=== PATIENT | female | born 1970 | race Two or more races ===

== ENCOUNTER 2016-12-26 17:59 | Emergency (ER) | payer OTHER ==
--- NOTE | 2016-12-26 18:49 | ER Document Report ---
ED Medical Screen (RME) - General Chief Complaint: Abdominal Pain Stated Complaint: ABDOMINAL PAIN Time Seen by Provider: 12/26/16 18:44 Mode of Arrival: Ambulatory Information source: Patient TRAVEL OUTSIDE OF THE [place] IN LAST 30 DAYS: No - HPI Onset: Yesterday - 2000 HRS Onset/Duration: Gradual Quality of pain: Dull Severity: Moderate Associated Symptoms: Nausea. denies: Chills, Dysuria, Fever Exacerbated by: Denies Relieved by: Denies Similar symptoms previously: Yes - UNSURE OF CAUSE Recently seen / treated by doctor: No - Related Data Smoking: Non-smoker Frequency of alcohol use: None Drug Abuse: None Allergies/Adverse Reactions: latex Allergy (Verified 12/26/16 18:32) Past Medical History - General Information source: Patient - Social History Cigarette use (# per day): No Chew tobacco use (# tins/day): No Frequency of alcohol use: None Drug Abuse: None Lives with: Spouse/Significant other Family history: None - Past Medical History Cardiac Medical History: Reports: None Pulmonary Medical History: Reports: None Endocrine Medical History: Reports: None Renal/ Medical History: Reports: Other. Denies: Hx Peritoneal Dialysis Other: POSSIBLE ENDOMETRIOSIS, PER [facility]. Malignancy Medical History: Reports: None GI Medical History: Reports: None Musculoskeltal Medical History: Reports None Psychiatric Medical History: Reports: None Past Surgical History: Reports: Hx Section - 2x, Hx Tubal Ligation Review of Systems - Review of Systems Constitutional: No symptoms reported EENT: No symptoms reported Cardiovascular: No symptoms reported Respiratory: No symptoms reported Gastrointestinal: See HPI Genitourinary: No symptoms reported Female Genitourinary: See HPI. denies: Vaginal bleeding Musculoskeletal: No symptoms reported Skin: No symptoms reported Neurological/Psychological: No symptoms reported Physical Exam - Vital signs Vitals: Temp Pulse Resp BP Pulse Ox 98.3 F 110 H 14 128/96 H 100 12/26/16 17:59 12/26/16 17:59 12/26/16 17:59 12/26/16 17:59 12/26/16 17:59 Interpretation: Hypertensive, Tachycardic. No: Tachypneic, Febrile - General General appearance: Alert. No: Appears well - APPEARS UNCOMFORTABLE In distress: None - HEENT Head: Normocephalic Eyes: Normal Ears: Normal Nasal: Normal Mouth/Lips: Normal Mucous membranes: Normal - Respiratory Respiratory status: No respiratory distress - Cardiovascular Rhythm: Regular - Abdominal Inspection: Obese - Back Back: Normal - Extremities General upper extremity: Normal inspection General lower extremity: Normal inspection - Neurological Neuro grossly intact: Yes Cognition: Normal Orientation: AAOx4 - Psychological Associated symptoms: Normal affect, Normal mood - Skin Skin Temperature: Warm Skin Moisture: Dry Skin Color: Normal Skin Turgor: Elastic Course - Vital Signs Vital signs: Temp Pulse Resp BP Pulse Ox 98.3 F 110 H 14 128/96 H 100 12/26/16 17:59 12/26/16 17:59 12/26/16 17:59 12/26/16 17:59 12/26/16 17:59
[2016-12-26] MEDS ORDERED: ONDANSETRON HCL INJ/PF 4 MG/2 ML SDV IV ONE (18:50)
[2016-12-26] MEDS ORDERED: HYDROMORPHONE HCL INJ/PF 2 MG/ML AMPULE IV ONE (18:50)
[2016-12-26 19:14] LABS: APPEARANCE,URINE SLIGHTLY-CLOUDY; BILIRUBIN,URINE NEGATIVE (NEGATIVE); GLUCOSE, URINE NEGATIVE (NEGATIVE); KETONES,URINE NEGATIVE (NEGATIVE); LEUKOCYTE ESTERASE,URINE NEGATIVE (NEGATIVE); NITRITE,URINE NEGATIVE (NEGATIVE); PROTEIN,URINE NEGATIVE (NEGATIVE); URINE SPECIFIC GRAVITY 1.027; UROBILINOGEN,URINE NEGATIVE mg/dL (<2.0)
[2016-12-26 19:57] LABS: ABSOLUTE LYMPHOCYTES (AUTO) 0.9 10^3/uL (0.5-4.7); ABSOLUTE MONOCYTES (AUTO) 0.5 10^3/uL (0.1-1.4); ABSOLUTE NEUT (AUTO) 10.1 10^3/uL (1.7-8.2); BASOPHILS % (AUTO) 0.2 % (0-2); EOSINOPHILS % (AUTO) 0.3 % (0-6); HEMATOCRIT 37.4 % (36.0-47.0); HGB HCT DIFFERENCE -1.4; LYMPHOCYTES % (AUTO) 8.2 % (13-45); MEAN CORPUSCULAR HEMOGLOBIN 25.5 pg (27.0-33.4); MEAN CORPUSCULAR HGB CONC 31.9 g/dL (32.0-36.0); MEAN CORPUSCULAR VOLUME 80 fl (80-97); MONOCYTES % (AUTO) 3.9 % (3-13); RED BLOOD COUNT 4.68 10^6/uL (3.72-5.28); RED CELL DISTRIBUTION WIDTH 15.1 % (11.5-14.0); SEGMENTED NEUTROPHILS % (AUTO) 87.4 % (42-78); WHITE BLOOD COUNT 11.6 10^3/uL (4.0-10.5)
--- NOTE | 2016-12-26 20:04 | RADIOLOGY REPORT (SQ) ---
EXAM DESCRIPTION: U/S NON-OB PELVIS TV W/O DOP COMPLETED DATE/TIME: 12/26/2016 7:54 pm REASON FOR STUDY: PELVIC PAIN COMPARISON: None. TECHNIQUE: Dynamic and static grayscale images acquired of the pelvis via transvaginal approach and recorded on PACS. Additional selected color Doppler and spectral images recorded. LIMITATIONS: Large patient, adnexal bowel gas. FINDINGS: UTERUS: Contour normal. No mass. Uterus is 9.5 x 4.7 x 5.5 cm in size. ENDOMETRIAL STRIPE: No focal or generalized thickening. No masses. Endometrium 14 mm in thickness. CERVIX: No nabothian cysts. RIGHT OVARY: Not visualized due to bowel gas. RIGHT OVARY DOPPLER: Not performed LEFT OVARY: Not visualized due to bowel gas LEFT OVARY DOPPLER: Not performed FREE FLUID: None noted. OTHER: No other significant finding. IMPRESSION: Uterus unremarkable. Ovaries not visualized due to adnexal bowel gas. TECHNICAL DOCUMENTATION: JOB ID: [id number] [employer]- All Rights Reserved
[2016-12-26] MEDS ORDERED: NORMAL SALINE 1000 ML 1,000 ML IV ONE (21:02)
[2016-12-26] MEDS ORDERED: KETOROLAC TROMETHAMINE INJ/PF 30 MG/1 ML SDV IV ONE (21:02)
--- NOTE | 2016-12-26 21:04 | ER Document Report ---
ED General - General Chief Complaint: Abdominal Pain Stated Complaint: ABDOMINAL PAIN Time Seen by Provider: 12/26/16 18:44 Mode of Arrival: Ambulatory Notes: Patient is a 46-year-old female without past medical history, prior surgical history of a section and tubal ligation who presents with 36 hours of diffuse lower abdominal cramping with associated diarrhea and vomiting. Her and [id number] who ate the same pizza from [employer] had the exact same symptoms. Patient reports that the abdominal pain is an intermittent , lower abdominal cramping but became worse, prompting her to come to the emergency department. Nothing improves or worsens her symptoms. She did have one episode of emesis here in the emergency department that was nonbilious. She states that this has mostly resolved her pain. Denies a history of similar symptoms in the past. She has not seen a primary care doctor regarding today's concerns. She denies any fever, vaginal bleeding, vaginal discharge, flank pain , chest pain or shortness of breath. TRAVEL OUTSIDE OF THE [place] IN LAST 30 DAYS: No - Related Data Allergies/Adverse Reactions: latex Allergy (Verified 12/26/16 18:32) Past Medical History - General Information source: Patient - Social History Smoking Status: Never Smoker Cigarette use (# per day): No Chew tobacco use (# tins/day): No Frequency of alcohol use: None Drug Abuse: None Lives with: Spouse/Significant other Family History: Reviewed & Not Pertinent - Past Medical History Cardiac Medical History: Reports: None Pulmonary Medical History: Reports: None Endocrine Medical History: Reports: None Renal/ Medical History: Reports: Other. Denies: Hx Peritoneal Dialysis Malignancy Medical History: Reports: None GI Medical History: Reports: None Musculoskeltal Medical History: Reports None Psychiatric Medical History: Reports: None Past Surgical History: Reports: Hx Section - 2x, Hx Tubal Ligation Review of Systems - Review of Systems Notes: Constitutional: Negative for fever. HENT: Negative for sore throat. Eyes: Negative for visual changes. Cardiovascular: Negative for chest pain. Respiratory: Negative for shortness of breath. Gastrointestinal: Positive negative for abdominal pain, vomiting and diarrhea. Genitourinary: Negative for dysuria. Musculoskeletal: Negative for back pain. Skin: Negative for rash. Neurological: Negative for headaches, weakness or numbness. 10 point ROS negative except as marked above and in HPI. Physical Exam - Vital signs Vitals: Temp Pulse Resp BP Pulse Ox 98.3 F 110 H 14 128/96 H 100 12/26/16 17:59 12/26/16 17:59 12/26/16 17:59 12/26/16 17:59 12/26/16 17:59 Interpretation: Tachycardic Notes: PHYSICAL EXAMINATION: GENERAL: Well-appearing, well-nourished and in no acute distress. HEAD: Atraumatic, normocephalic. EYES: Pupils equal round and reactive to light, extraocular movements intact, sclera anicteric, conjunctiva are normal. ENT: nares patent, oropharynx clear without exudates. Moderately dry mucous membranes. NECK: Normal range of motion, supple without lymphadenopathy LUNGS: Breath sounds clear to auscultation bilaterally and equal. No wheezes rales or rhonchi. HEART: Regular rate and rhythm without murmurs ABDOMEN: Soft, diffuse mild lower abdominal tenderness without any focal rebound or guarding. No upper abdominal tenderness, specifically no tenderness to the right upper quadrant or epigastrium.Normoactive bowel sounds. No masses appreciated. EXTREMITIES: Normal range of motion, no pitting or edema. No cyanosis. NEUROLOGICAL: No focal neurological deficits. Moves all extremities spontaneously and on command. PSYCH: Normal mood, normal affect. SKIN: Warm, Dry, normal turgor, no rashes or lesions noted. Course - Re-evaluation Re-evalutation: 12/26/16 21:02 Presentation of an overall well-appearing patient in no acute distress with complaints of nausea, vomiting, diarrhea. Multiple family members with exact same symptoms after eating pizza [employer]. Patient does have some mild diffuse tenderness over the lower abdomen without any focal rebound or guarding. Overall well hydrated on exam. Able to tolerate oral intake here in the emergency department. Low clinical suspicion for any acute life- threatening etiology based on exam and history including acute cholecystitis, SBO, appendicitis, nephrolithiasis, or pylonephritis. CMP without evidence of acute hepatitis or significant dehydration. At this time will discharge with return precautions and follow-up recommendations. Verbal discharge instructions given a the bedside and opportunity for questions given. Medication warnings reviewed. Patient is in agreement with this plan and has verbalized understanding of return precautions and the need for primary care follow-up in the next 24-72 hours. - Vital Signs Vital signs: Temp Pulse Resp BP Pulse Ox 99.8 F 101 H 19 130/71 H 97 12/26/16 22:20 12/26/16 22:20 12/26/16 22:20 12/26/16 22:20 12/26/16 22:20 - Laboratory Result Diagrams: 12/26/16 19:34 12/26/16 21:20 Laboratory results interpreted by me: 12/26/16 12/26/16 19:34 21:20 WBC 11.6 H MCH 25.5 L MCHC 31.9 L RDW 15.1 H Seg Neutrophils % 87.4 H Lymphocytes % 8.2 L Absolute Neutrophils 10.1 H Sodium 136.8 L Glucose 125 H - Diagnostic Test Radiology reviewed: Reports reviewed Discharge - Discharge Clinical Impression: Vomiting and diarrhea Abdominal pain Qualifiers: Abdominal location: lower abdomen, unspecified Qualified Code(s): R10.30 - Lower abdominal pain, unspecified Condition: Good Disposition: HOME, SELF-CARE Additional Instructions: Your symptoms are likely due to food contamination and should resolve in the next several days. You can take [id number] loperamide also known as Imodium as needed for diarrhea per box instructions. Continue to stay hydrated with plenty of solution such as Gatorade or Pedialyte. You are being prescribed Zofran to take as needed for nausea and vomiting. Please return if you develop severe abdominal pain, pass out, become unable to tolerate any oral fluids for 12 more hours, or any other symptoms that are concerning to you. Referrals: FAY TUCKER MD [Primary Care Provider] - Follow up as needed
[2016-12-26] MEDS ORDERED: ONDANSETRON ODT 4 MG TAB (6 TAB/DSPK) PO PRN (21:35)
[2016-12-26 21:44] LABS: ALANINE AMINOTRANSFERASE 30 U/L (9-52); ALKALINE PHOSPHATASE 101 U/L (38-126); ANION GAP 10 (5-19); ASPARTATE AMINO TRANSFERASE 17 U/L (14-36); BILIRUBIN,DIRECT 0.3 mg/dL (0.0-0.4); BILIRUBIN,TOTAL 0.8 mg/dL (0.2-1.3); BLOOD UREA NITROGEN 7 mg/dL (7-20); CALCIUM 9.5 mg/dL (8.4-10.2); CARBON DIOXIDE 24 mmol/L (22-30); CHLORIDE 103 mmol/L (98-107); CREATININE RESULT 0.61 mg/dL (0.52-1.25); GLUCOSE 125 mg/dL (75-110); POTASSIUM 3.8 mmol/L (3.6-5.0); SODIUM 136.8 mmol/L (137-145); TOTAL PROTEIN 7.1 g/dL (6.3-8.2)
[2016-12-26 22:36] VITALS: BP 130/71
== END 2016-12-26 22:20 | disposition home or self-care (01) ==
LOC: ER 17:59
DX: R11.2 Nausea with vomiting, unspecified (principal); R19.7 Diarrhea, unspecified; R10.30 Lower abdominal pain, unspecified
CPT/HCPCS: 99284; 96361; 96374; 96375; 36415; 84703; 85025; 80053; 81001; 76830; J1885; J2405; J7030

== ENCOUNTER 2016-12-28 19:07 | Observation (INO) | payer OTHER ==
[~2016-12-28 19:07] MED LIST: DEXAMETHASONE SOD PHOSPHATE INJ 4 MG/1 ML VIAL ONE; GLYCOPYRROLATE INJ 0.4 MG/2 ML VIAL ONE; LIDOCAINE 2% INJ-PF (20 MG/ML) 10 ML AMPUL ONE; NEOSTIGMINE METHYLSULFATE 10 MG/10 ML VIAL ONE; ONDANSETRON HCL INJ/PF 4 MG/2 ML SDV ONE; SUCCINYLCHOLINE CHLORIDE INJ 200 MG/10 ML VIAL ONE; VECURONIUM BROMIDE INJ 10 MG VIAL IV ONE
[2016-12-28] MEDS ORDERED: PIPERACILLIN/TAZOBACTAM 3.375 GM VIAL IV ONE (19:12)
[2016-12-28] MEDS ORDERED: MORPHINE SULFATE 10 MG/ML INJ IV PRN ×3 (19:12→22:27)
[2016-12-28] MEDS ORDERED: ONDANSETRON HCL INJ/PF 4 MG/2 ML SDV IV ONE (19:12)
[2016-12-28] MEDS ORDERED: NORMAL SALINE 1000 ML 1,000 ML IV ONE (19:13)
--- NOTE | 2016-12-28 19:46 | ER Document Report ---
ED General - General Stated Complaint: ABDOMINAL PAIN Time Seen by Provider: 12/28/16 19:12 Notes: Patient is a 46-year-old female with a past medical history of hypertension who presents today with a total of 3 days of progressively worsening abdominal pain with associated diarrhea and vomiting. I saw this patient 2 days ago at which time she had generalized abdominal pain, diarrhea and vomiting without any fever or constitutional symptoms. She was discharged with concern for possible foodborne illness given multiple for members of the same symptoms. Patient states that she continued to not feel any better and had progressively worsening lower abdominal pain and did spike a fever today. This prompted her to follow-up with her primary care doctor who performed a CT scan of her abdomen pelvis was demonstrate an acute appendicitis. At time of presentation she notes a mild, dull, constant, aching pain mostly located to the right lower quadrant. She states that she has been having diarrhea and nausea but no further episodes of vomiting. No history of similar symptoms in the past. TRAVEL OUTSIDE OF THE [place] IN LAST 30 DAYS: No - Related Data Allergies/Adverse Reactions: latex Allergy (Verified 12/26/16 18:32) Home Medications: Current Home Medications Fluticasone Propionate [Flonase Nasal [place] 50 Mcg/[place] 16 gm] 1 spray NASL Q12 12/28/16 [History] Loratadine [Claritin] 10 mg PO PRN PRN 12/28/16 [History] Montelukast Sodium [Singulair 10 mg Tablet] 10 mg PO QHS 12/28/16 [History] Past Medical History - General Information source: Patient - Social History Smoking Status: Never Smoker Frequency of alcohol use: None Drug Abuse: None Lives with: Spouse/Significant other Family History: Reviewed & Not Pertinent Renal/ Medical History: Denies: Hx Peritoneal Dialysis Past Surgical History: Reports: Hx Section - 2x, Hx Tubal Ligation Review of Systems - Review of Systems Notes: Constitutional: Negative for fever. HENT: Negative for sore throat. Eyes: Negative for visual changes. Cardiovascular: Negative for chest pain. Respiratory: Negative for shortness of breath. Gastrointestinal: Positive for abdominal pain and diarrhea Genitourinary: Negative for dysuria. Musculoskeletal: Negative for back pain. Skin: Negative for rash. Neurological: Negative for headaches, weakness or numbness. 10 point ROS negative except as marked above and in HPI. Physical Exam - Vital signs Vitals: BP 137/80 H 12/28/16 19:40 Interpretation: Normal Notes: PHYSICAL EXAMINATION: GENERAL: Well-appearing, well-nourished and in no acute distress. HEAD: Atraumatic, normocephalic. EYES: Pupils equal round and reactive to light, extraocular movements intact, sclera anicteric, conjunctiva are normal. ENT: nares patent, oropharynx clear without exudates. Moist mucous membranes. NECK: Normal range of motion, supple without lymphadenopathy LUNGS: Breath sounds clear to auscultation bilaterally and equal. No wheezes rales or rhonchi. HEART: Regular rate and rhythm without murmurs ABDOMEN: Soft, focal tenderness to the right lower quadrant without rebound or guarding EXTREMITIES: Normal range of motion, no pitting or edema. No cyanosis. NEUROLOGICAL: No focal neurological deficits. Moves all extremities spontaneously and on command. PSYCH: Normal mood, normal affect. SKIN: Warm, Dry, normal turgor, no rashes or lesions noted. Course - Re-evaluation Re-evalutation: 12/28/16 19:45 Patient presents with now constant right lower quadrant abdominal pain with associated diarrhea and nausea. She did spike a fever today which is what prompted her to go to her primary care doctor's office. States that she did so based on return precautions provided by me on the prior visit. A CT scan was obtained by Dr. Juárez and does show an acute appendicitis. On examination today , patient's exam is much more consistent with an acute appendicitis with focal right lower quadrant tenderness but she remains without any rebound or guarding. She continues to not have a leukocytosis. She does appear somewhat dehydrated. Vitals are otherwise within normal limits. I have consulted with Dr. Shrestha will take the patient to the operating room for an appendectomy. IV fluids and antibiotics have been started. - Vital Signs Vital signs: Temp Pulse Resp BP Pulse Ox 98.7 F 17 130/70 H 99 12/28/16 20:11 12/28/16 20:01 12/28/16 20:01 12/28/16 20:01 - Diagnostic Test Radiology reviewed: Reports reviewed Discharge - Discharge Clinical Impression: Acute appendicitis Qualifiers: Acute appendicitis type: with localized peritonitis Qualified Code(s): K35.3 - Acute appendicitis with localized peritonitis Condition: Stable Disposition: ADMITTED OBSERVATION Admitting Provider: Surgicalist Carlos Paulino Unit Admitted: Surgical Floor
[2016-12-28] MEDS ORDERED: RINGERS SOLUTION,LACTATED 1,000 ML IV PRN (20:42)
[2016-12-28] MEDS ORDERED: BUPIVACAINE HCL 0.25 % INJ/PF (2.5 MG/1 ML) 30 ML VIAL ONE (20:54)
[2016-12-28] MEDS ORDERED: PROPOFOL INJ 200 MG/20 ML VIAL IV ONE (20:58)
[2016-12-28] MEDS ORDERED: MIDAZOLAM 2 MG/2 ML INJ ONE (20:58)
[2016-12-28] MEDS ORDERED: FENTANYL CITRATE INJ/PF 100 MCG/2 ML AMPUL ONE ×2 (20:58)
--- NOTE | 2016-12-28 21:12 | HISTORY AND PHYSICAL E ---
History and Physical NAME: NUVIA DELGADO : 1970 AGE: 46Y ADMITTED: 12/28/2016 ROOM: ED09 REASON FOR ADMISSION: The patient is seen at the request of Esteban Cifuentes, physician. HISTORY OF PRESENTING ILLNESS: The patient is a 46-year-old female with an approximately 4-day history of abdominal pain, nausea, vomiting, and diarrhea. She was seen in the emergency department 2 days ago where she was evaluated, found to have unremarkable transvaginal ultrasound and was discharged home. She continued to have abdominal pain, more localized to the right lower quadrant, fever, and diarrhea. She did take Pepto-Bismol and Imodium. She did not have any more vomiting. She was seen in the emergency department earlier today where she underwent CT scan of the abdomen and pelvis which showed findings consistent with an acute appendicitis. Surgery was consulted and she was advised admission for definitive management. PAST MEDICAL HISTORY: Significant for allergies. PAST SURGICAL HISTORY: Significant for: 1. section. 2. Bilateral tubal ligation. ALLERGIES: Include LATEX. MEDICATIONS: Include: 1. Flonase. 2. Singulair. 3. Claritin. PRIMARY CARE PHYSICIAN: Local medical doctor is Dr. Juárez SOCIAL HISTORY: The patient does not smoke or drink alcohol. REVIEW OF SYSTEMS: CONSTITUTIONAL: The patient denies. CARDIOVASCULAR: The patient denies. MUSCULOSKELETAL: The patient denies. RESPIRATORY: The patient denies. GASTROINTESTINAL: As per HPI. The patient states that she has never had a colonoscopy. PHYSICAL EXAMINATION: PATIENT LOCATION: The patient is examined in the emergency department. She is anxious. VITAL SIGNS: Significant for heart rate of approximately 120, blood pressure 130/70, respirations 18. GENERAL: The patient is anxious but awake, alert, and communicative; she is alert and oriented x4. HEAD: Eyes without icterus. NECK: No adenopathy. LUNGS: Diminished at the bases bilaterally. No wheezing. HEART: Without murmur or gallop. ABDOMEN: Soft but tender in the right lower quadrant with guarding. There is some no rigidity. Operative scars consistent with the previous surgery. EXTREMITIES: Upper and lower extremities without cyanosis, clubbing, edema. SKIN: Normal turgor. DIAGNOSTIC DATA: Laboratory profile shows a white blood cell count of 10,000 with 90% polys, hemoglobin of 10.9. Electrolytes show AST at 56, ALT of 76, and an alkaline phosphatase of 161. CT scan of the abdomen and pelvis without IV and without oral contrast show findings consistent with acute appendicitis as evidenced by a dilated appendiceal diameter and appendiceal inflammatory changes. IMPRESSION: 1. Acute abdominal pain, nausea, vomiting, diarrhea, physical and radiographic findings consistent with acute appendicitis. 2. Anemia. RECOMMENDATIONS: The patient will be admitted to the surgicalist service, kept NPO, on IV fluids, intravenous antibiotics, and taken to the operating room for interval laparoscopic, possible open appendectomy. I have explained the mechanics of the operation to the patient as well as her significant other. The chances of conversion to an open procedure, need for drain placement or other surgery also discussed with the patient. She is anxious but expresses her understanding and agrees to proceed. DICTATING PHYSICIAN: JOHN CLANCY M.D. [id number] PHY#: [id number] ID: [id number] JOB#: [id number] ACCT: [id number] cc:Loren SMITH M.D. > MTDD
[2016-12-28] MEDS ORDERED: DIPHENHYDRAMINE HCL 50 MG/ML VIAL IV PRN (21:51)
[2016-12-28] MEDS ORDERED: FENTANYL CITRATE INJ/PF 100 MCG/2 ML AMPUL IV PRN ×3 (21:51)
[2016-12-28] MEDS ORDERED: PROMETHAZINE HCL INJ 25 MG/1 ML VIAL IV PRN (21:51)
[2016-12-28] MEDS ORDERED: MEPERIDINE HCL/PF INJ 25 MG/1 ML DISP.SYRIN IV PRN (21:51)
[2016-12-28] MEDS ORDERED: BUPIVACAINE HCL 0.25 % INJ/PF (2.5 MG/1 ML) 30 ML VIAL INJ ONE (22:04)
[2016-12-28] MEDS ORDERED: ONDANSETRON HCL INJ/PF 4 MG/2 ML SDV IV PRN (22:27)
[2016-12-28] MEDS ORDERED: OXYCODONE-ACETAMINOPHEN 5-325 MG TABLET PO PRN (22:29)
[2016-12-28] MEDS ORDERED: PIPERACILLIN/TAZOBACTAM 3.375 GM VIAL IV PRN (22:49)
[2016-12-28] MEDS ORDERED: IBUPROFEN INJ 800 MG/8 ML VIAL IV ONE (23:02)
[2016-12-28] MEDS ORDERED: ACETAMINOPHEN 100 ML IV ONE ×2 (23:02→23:15)
[2016-12-28] MEDS ORDERED: IBUPROFEN 800 MG in NORMAL SALINE 250 ML IV ONE (23:15)
--- NOTE | 2016-12-28 23:37 | OPERATIVE REPORT E ---
Operative Report NAME: NUVIA DELGADO : 1970 AGE: 46Y DATE OF SURGERY: 12/28/2016 ROOM: ED09 PREOPERATIVE DIAGNOSIS: Acute appendicitis. POSTOPERATIVE DIAGNOSIS: Acute suppurative appendicitis. OPERATION: Laparoscopic appendectomy. SURGEON: JOHN CLANCY M.D. ANESTHESIA: General. COMPLICATIONS: None. ESTIMATED BLOOD LOSS: Minimal. DRAINS: One large Elmer. COMPLICATIONS: None. FINDINGS: See below. SUMMARY OF PROCEDURE: Patient taken from the preop holding area to the main operating room where general anesthesia was induced. A Lopez catheter was inserted. The arms were abducted. The abdomen was prepped and draped in sterile fashion. Instrumentation was set up for laparoscopic appendectomy. A surgical plan and a surgical timeout were conducted. The skin was anesthetized with 0.25% Marcaine. Markings were made on the skin at the supraumbilical position, the suprapubic position, and the left lower quadrant. A vertical incision was made over the umbilicus. A Veress needle inserted in the peritoneal cavity. Pneumoperitoneum was established. The Veress needle was removed. A 5-mm port was inserted and a 5-mm viewing scope was inserted. Under direct visualization, 2 additional ports were placed: one 5 mm in the suprapubic position and a 12 mm in the left lower quadrant. Of note, there was a midline ventral infraumbilical hernia with adhesions between the greater omentum and the anterior abdominal wall. These were not taken down, as they were not directly in the way of our planned operation. There was suppurative purulent discharge in the pelvis. The right tube and ovary were inflamed by association only. There was a phlegmonous mass-like effect involving the terminal ileum, a limb of the greater omentum, and the appendix, which was anterior and inferior to the cecum. The appendix was grasped and the retroperitoneal reflection over the cecum laterally and inferiorly was divided with the LigaSure device. This enabled us to elevate the cecum anteriorly and towards the patient's midline. We took down some of the mesoappendix with the LigaSure device, and teased away the peel created by the inflammatory process which then revealed the appendix to be suspended solely at its base. Photographs were taken. The appendix was then divided at its base with a single firing of the blue load Endo EDMUND stapler, 45 mm. The specimen, the appendix, was placed in an Endobag and brought out of the patient through the left lower quadrant port site. We returned to the peritoneal cavity and checked for bleeding. Irrigation was provided just to the pelvis and right lower quadrant. A large Elmer drain was placed in the suprapubic position through the previously placed port site. We checked the rest of the peritoneal cavity for any evidence of bleeding, visceral or vascular injury, and there was none. We felt the operation was complete. Sponge and needle counts were correct. All ports were removed under direct visualization. Pneumoperitoneum evacuated and wound was closed with 0 Vicryl, benzoin and Steri-Strips. The drain was secured to the skin with 2-0 Prolene suture. The patient was extubated and taken to the recovery room in stable condition. DICTATING PHYSICIAN: JOHN CLANCY M.D. [id number] PHY#: [id number] ID: [id number] JOB#: [id number] ACCT: [id number] cc:JOHN CLANCY M.D. >
[2016-12-29] MEDS ORDERED: PIPERACILLIN/TAZOBACTAM 3.375 GM VIAL IV ONE (05:00)
[2016-12-29] MEDS ORDERED: PIPERACILLIN SODIUM/TAZOBACTAM 3.375 GM in NORMAL SALINE 100 ML IV SCH (06:00)
[2016-12-29] MEDS ORDERED: BENZOCAINE/MENTHOL SORE THROAT LOZENGE BUCCAL PRN (07:15)
[2016-12-29 08:17] VITALS: BP 120/68
[2016-12-29] MEDS ORDERED: OXYCODONE-ACETAMINOPHEN 5-325 MG TABLET PO PRN (09:02)
--- NOTE | 2016-12-29 09:29 | PDOC PROGRESS REPORT ---
Subjective Progress Note for:: 12/29/16 Subjective:: Patient comfortable, tolerating po well; she denies abdominal pain Physical Exam Vital Signs: Temp Pulse Resp BP Pulse Ox 98.6 F 94 18 120/68 100 12/29/16 07:56 12/29/16 07:56 12/29/16 07:56 12/29/16 07:56 12/29/16 07:56 Intake & Output 12/28/16 12/29/16 12/30/16 06:59 06:59 06:59 Intake Total 1500 Output Total 615 Balance 885 Weight 90.1 kg General appearance: PRESENT: no acute distress Respiratory exam: PRESENT: clear to auscultation sarwat Cardiovascular exam: PRESENT: RRR GI/Abdominal exam: PRESENT: hypoactive bowel sounds, soft, other - all wounds are c/d/i; LONG drain in the LLQ with cloudy serosanguinous fluid Assessment & Plan - Plan Summary Plan Summary: A/ POD#1 after laparoscopic appendectomy for suppurative appendicitis patient tolerating po well VSS, AF LONG output 50 ml , cloudy PE unremarkable P/ Regular diet Home today LONG care teaching F/U with Dr. 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
[2016-12-29] MEDS ORDERED: DOCUSATE SODIUM 100 MG CAPSULE PO SCH (10:00)
--- NOTE | 2016-12-29 10:02 | DISCHARGE SUMMARY E ---
Discharge Summary NAME: NUVIA DELGADO : 1970 AGE: 46Y ADMITTED: 12/28/2016 DISCHARGED: 12/29/2016 FINAL DIAGNOSIS: Acute suppurative appendicitis. PROCEDURE: On December 28 the patient underwent laparoscopic appendectomy. COMPLICATIONS: None. HOSPITAL COURSE: A 46-year-old healthy female with a history of right upper quadrant pain and intense nausea and vomiting. She came to the emergency room on December 28 and underwent a CAT scan revealing an acute appendicitis. The patient was taken to surgery the same day. She underwent uneventful laparoscopic appendectomy. She was then transferred to the floor in satisfactory condition. Her postop course was unremarkable. She remained afebrile with stable vital signs. On physical exam, the abdomen was soft. The patient was able to tolerate a clear liquid diet and a regular diet. On the day of discharge the patient had no complaints. She denied abdominal pain. Her vital signs were stable, she was afebrile, and her physical exam was unremarkable with all incisions clean, dry, and intact. She also had a Mandeep-Acevedo drain in the right upper quadrant which was draining cloudy serosanguineous fluid. The patient was discharged to home on December 29, 2016. She was given a regular diet, activity as tolerated, with no lifting more than 10 pounds for about a week or while the drain is in place. She was instructed not to return to work for about a week. She was instructed to follow a regular diet. She was given Tylenol and Aleve p.r.n. for pain, Augmentin 875 mg p.o. b.i.d. for 5 days. She was instructed to sponge bath only while the drain is in place and to empty the drain daily and record the amount of the drained fluid daily and to bring the record of drainage at the next office visit. DICTATING PHYSICIAN: ROSIBEL ARIAS M.D. [id number] PHY#: [id number] ID: [id number] JOB#: [id number] ACCT: [id number] cc:Loren SMITH M.D. EGuille RGuille [facility]
== END 2016-12-29 10:30 | disposition home or self-care (01) ==
LOC: ER 19:07 → EH 20:34 → UNDOADMOB 20:34 → EH 20:41 → 2N 23:42
PROVIDERS: ATTEND Surgery
PROC: 0DTJ4ZZ Resection of Appendix, Percutaneous Endoscopic Approach (ICD-10-PCS; principal; 2016-12-28 21:30)
DX: K35.3 Acute appendicitis with localized peritonitis (principal); D64.9 Anemia, unspecified; K42.9 Umbilical hernia without obstruction or gangrene; K66.0 Peritoneal adhesions (postprocedural) (postinfection); Z98.51 Tubal ligation status; Z79.899 Other long term (current) drug therapy
CPT/HCPCS: 44970; 99285; 96361; 96375; 96365; 36415; 83690; 85025; 80053; 88304 ×2; 74176; 94799; G0378 ×2; J2250; J1100; J3010; J3490 ×2; J0330; J2405; J7030; J7120; J2704; J2543 ×2; J0131; J1741; 840

== ENCOUNTER → 2016-12-28 | Outpatient (CLI) | payer OTHER ==
[2016-12-28 17:16] LABS: ABSOLUTE EOSINOPHILS # (AUTO) 0.1 10^3/uL (0.0-0.6); ABSOLUTE LYMPHOCYTES (AUTO) 0.5 10^3/uL (0.5-4.7); ABSOLUTE MONOCYTES (AUTO) 0.3 10^3/uL (0.1-1.4); BASOPHILS % (AUTO) 0.3 % (0-2); EOSINOPHILS % (AUTO) 0.7 % (0-6); HEMATOCRIT 32.7 % (36.0-47.0); HEMOGLOBIN 10.9 g/dL (12.0-15.5); LYMPHOCYTES % (AUTO) 5.3 % (13-45); MEAN CORPUSCULAR HGB CONC 33.3 g/dL (32.0-36.0); MEAN CORPUSCULAR VOLUME 78 fl (80-97); MONOCYTES % (AUTO) 3.5 % (3-13); RED BLOOD COUNT 4.19 10^6/uL (3.72-5.28); RED CELL DISTRIBUTION WIDTH 14.9 % (11.5-14.0); SEGMENTED NEUTROPHILS % (AUTO) 90.2 % (42-78)
[2016-12-28 17:39] LABS: ALANINE AMINOTRANSFERASE 76 U/L (9-52); ALBUMIN 3.6 g/dL (3.5-5.0); ALKALINE PHOSPHATASE 161 U/L (38-126); ANION GAP 10 (5-19); ASPARTATE AMINO TRANSFERASE 56 U/L (14-36); BILIRUBIN,DIRECT 0.5 mg/dL (0.0-0.4); BILIRUBIN,TOTAL 0.7 mg/dL (0.2-1.3); BLOOD UREA NITROGEN 8 mg/dL (7-20); CALCIUM 9.4 mg/dL (8.4-10.2); CARBON DIOXIDE 23 mmol/L (22-30); CHLORIDE 103 mmol/L (98-107); CREATININE RESULT 0.64 mg/dL (0.52-1.25); GLUCOSE 105 mg/dL (75-110); LIPASE 110.5 U/L (23-300); POTASSIUM 3.6 mmol/L (3.6-5.0); SODIUM 135.8 mmol/L (137-145); TOTAL PROTEIN 6.6 g/dL (6.3-8.2)
--- NOTE | 2016-12-28 18:49 | RADIOLOGY REPORT (SQ) ---
EXAM DESCRIPTION: CT ABD/PELVIS NO ORAL OR IV COMPLETED DATE/TIME: 12/28/2016 5:59 pm REASON FOR STUDY: GENERALIZED ABDOMINAL PAIN, FEVER UNSPECIFIED R10.84 GENERALIZED ABDOMINAL PAIN R 50.9 FEVER, UNSPECIFIED COMPARISON: None. TECHNIQUE: CT scan of the abdomen and pelvis performed without intravenous or oral contrast. Images reviewed with lung, soft tissue, and bone windows. Reconstructed coronal and sagittal MPR images revi ewed. All images stored on PACS. All CT scanners at this facility use dose modulation, iterative reconstruction, and/or weight based d osing when appropriate to reduce radiation dose to as low as reasonably achievable (ALARA). [facility]: Dose Right [facility]: CareDose [facility]: Dose Right [facility]: Teradose 4D [facility]: Smart [employer] RADIATION DOSE: Up-to-date CT equipment and radiation dose reduction techniques were employed. CTDIv ol: 16.8 mGy. DLP: 938 mGy-cm.mGy. LIMITATIONS: None. FINDINGS: LOWER CHEST: No significant findings. No nodules or infiltrates. NON-CONTRASTED LIVER, SPLEEN, ADRENALS: Evaluation limited by lack of IV contrast. No identified sign ificant masses. PANCREAS: No masses. No peripancreatic inflammatory changes. GALLBLADDER: Gallstone. No pericholecystic fluid. RIGHT KIDNEY AND URETER: No suspicious masses. Assessment limited by lack of IV contrast. No signif icant calcifications. No hydronephrosis or hydroureter. LEFT KIDNEY AND URETER: No suspicious masses. Assessment limited by lack of IV contrast. No signifi cant calcifications. No hydronephrosis or hydroureter. AORTA AND RETROPERITONEUM: No aneurysm. No retroperitoneal masses or adenopathy. BOWEL AND PERITONEAL CAVITY: No obvious masses or inflammatory changes. No free fluid. APPENDIX: Dilated appendix with inflammatory changes in the right lower quadrant. PELVIS, BLADDER, AND ABDOMINAL WALL:No abnormal masses. No free fluid. Bladder normal. BONES: No significant findings. OTHER: No other significant finding. IMPRESSION: Appendicitis. Gallstones. COMMENT: Findings are reported to the referring physician at the time of the study. TECHNICAL DOCUMENTATION: JOB ID: [id number] Quality ID # [id number]: Final reports with documentation of one or more dose reduction techniques (e.g., Au tomated exposure control, adjustment of the mA and/or kV according to patient size, use of iterative reconstruction technique) 2011 [employer]- All Rights Reserved
--- NOTE | 2016-12-29 09:18 | PDOC PROGRESS REPORT ---
Subjective Progress Note for:: 12/29/16 Subjective:: Patient is comfortable, denies abdominal pain, nausea or vomiting Physical Exam General appearance: PRESENT: no acute distress Respiratory exam: PRESENT: clear to auscultation sarwat Cardiovascular exam: PRESENT: RRR GI/Abdominal exam: PRESENT: hypoactive bowel sounds, soft, other - wounds c/d/i ; drain in the LLQ with serosanguinous fluid Results Laboratory Results: 12/28/16 17:00 12/28/16 17:00 12/28/16 12/28/16 17:00 17:00 WBC 10.0 RBC 4.19 Hgb 10.9 L Hct 32.7 L MCV 78 L MCH 26.0 L MCHC 33.3 RDW 14.9 H Plt Count 235 Seg Neutrophils % 90.2 H Lymphocytes % 5.3 L Monocytes % 3.5 Eosinophils % 0.7 Basophils % 0.3 Absolute Neutrophils 9.0 H Absolute Lymphocytes 0.5 Absolute Monocytes 0.3 Absolute Eosinophils 0.1 Absolute Basophils 0.0 Sodium 135.8 L Potassium 3.6 Chloride 103 Carbon Dioxide 23 Anion Gap 10 BUN 8 Creatinine 0.64 Est GFR ( Amer) > 60 Est GFR (Non-Af Amer) > 60 Glucose 105 Calcium 9.4 Total Bilirubin 0.7 AST 56 H ALT 76 H Alkaline Phosphatase 161 H Total Protein 6.6 Albumin 3.6 Lipase 110.5 Impressions: Abdomen/Pelvis CT 12/28/16 16:58 IMPRESSION: Appendicitis. Gallstones. Assessment & Plan - Plan Summary Plan Summary: A/ POD#1 after laparoscopic appendectomy for acute suppurative appendicitis VSS, AF LONG drain 50 ml since surgery PE unremarkable patient tolerating clear liquids well P/ Regular diet Home today LONG care teaching F/U with Dr. 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
== END ==
LOC: RAD 16:42
PROVIDERS: ATTEND Family Medicine
DX: R10.84 Generalized abdominal pain (principal); R50.9 Fever, unspecified
CPT/HCPCS: 36415; 74176; 80053; 83690; 85025